=== PATIENT | male | born 1945 | race Caucasian/White ===

== ENCOUNTER → 2017-12-13 | Outpatient (REF) | payer MEDICARE ==
[2017-12-13 13:54] LABS: VITAMIN B12 LEVEL 498 PG/ML
[2017-12-13 14:05] LABS: FERRITIN 177 NG/ML (26-388); IRON (FE) 79 UG/DL (65-175); PERCENT SATURATION 27.1 % (19.7-50.0); TOTAL IRON BINDING CAPACITY 291 UG/DL (250-450)
== END ==
LOC: M LAB REF 13:19
DX: D64.9 Anemia, unspecified (principal)
CPT/HCPCS: 82746

== ENCOUNTER → 2019-03-21 | Outpatient (REF) | payer MEDICARE ==
[2019-03-21 13:45] LABS: FOLATE > 24.0 NG/ML; VITAMIN B12 LEVEL 676 PG/ML
== END ==
LOC: M LAB REF 13:07
PROVIDERS: ATTEND Nurse Practitioner Family
DX: D64.9 Anemia, unspecified (principal)

== ENCOUNTER → 2020-03-31 | Outpatient (REF) | payer MEDICARE ==
[2020-03-31 17:33] LABS: CREATININE FOR GFR 2.37 MG/DL (0.70-1.30); GLOMERULAR FILTRATION RATE 28.6 (>42); POTASSIUM SERUM 4.9 MEQ/L (3.5-5.1)
== END ==
LOC: M LAB REF 17:12
PROVIDERS: ATTEND Nurse Practitioner Family
DX: N18.3 Chronic kidney disease, stage 3 (moderate) (principal); E87.5 Hyperkalemia

== ENCOUNTER → 2023-04-27 | Outpatient (REF) | payer MEDICARE | LOC: M LAB REF 17:04 | PROVIDERS: ATTEND Nurse Practitioner Family | DX: N18.32 Chronic kidney disease, stage 3b (principal); E11.22 Type 2 diabetes mellitus with diabetic chronic kidney disease ==

== ENCOUNTER → 2024-02-06 | Outpatient (REF) | payer MEDICARE, OTHER ==
[2024-02-06 18:22] LABS: PERCENT SATURATION 20.6 % (19.7-50.0)
[2024-02-06 18:25] LABS: FERRITIN 224.2 NG/ML (10.5-307.3)
== END ==
LOC: M LAB REF 17:26
PROVIDERS: ATTEND Nurse Practitioner Family
DX: D50.9 Iron deficiency anemia, unspecified (principal)

== ENCOUNTER → 2025-01-21 | Outpatient (REF) | payer MEDICARE, OTHER ==
[2025-01-22 19:02] LABS: IRON (FE) 77 UG/DL (65-175); PERCENT SATURATION 26.6 % (19.7-50.0)
[2025-01-22 19:04] LABS: VITAMIN B12 LEVEL 994 PG/ML (211-911)
== END ==
LOC: M LAB REF 17:37
PROVIDERS: ATTEND Nurse Practitioner Family
DX: D64.9 Anemia, unspecified (principal)